=== PATIENT | male | born 1955 | race Caucasian/White ===

== ENCOUNTER → 2020-12-29 | Outpatient (CLI) | payer BC | LOC: EXRD 13:17 | DX: N50.811 Right testicular pain (principal) | CPT/HCPCS: 76870 ==

== ENCOUNTER 2021-10-15 22:37 | Emergency (ER) | payer MEDICARE ==
[~2021-10-15] VITALS: Ht 190.5 cm; Wt 99.3 kg
[2021-10-15 23:11] LABS: HEMOGLOBIN 15.2 gm/dl (14.0-17.5); RED BLOOD COUNT 4.98 M/UL (4.20-5.50); WHITE BLOOD COUNT 8.9 K/UL (4.5-11.0)
[2021-10-15 23:40] LABS: BUN/CREATININE RATIO 17 (0-10)
[2021-10-16] MEDS ORDERED: PRAVASTATIN SOD20 MG PO (12:32)
[2021-10-16] MEDS ORDERED: B COMPLEX1 EACH PO (12:33)
[2021-10-16] MEDS ORDERED: ASPIRIN EC81 MG PO (12:33)
[2021-10-16] MEDS ORDERED: LISINOPRIL-HCT1 EAC2 PO (12:33)
[2021-10-16] MEDS ORDERED: ZINC50 M1 PO (12:34)
[2021-10-16] MEDS ORDERED: LOPRESSOR 25 MG25 MG PO (14:54)
== END 2021-10-16 19:00 | disposition home or self-care (01) ==
LOC: ER1 22:37 → CDU 10-16 01:29 → ER1 10-16 01:29 → CDU 10-16 08:02
PROVIDERS: Family Medicine
DX: I47.1 Supraventricular tachycardia (principal); I10 Essential (primary) hypertension; E78.5 Hyperlipidemia, unspecified; Z79.899 Other long term (current) drug therapy; Z79.82 Long term (current) use of aspirin; Z88.1 Allergy status to other antibiotic agents
CPT/HCPCS: 71045; 80053; 82550; 82553; 83735; 84132; 84439; 84443; 84484; 85025; 93005; 96374; 96375; 99285; J0153